=== PATIENT | male | born 1965 | race African-American/Black ===

== ENCOUNTER 2016-10-11 19:11 | Emergency (ER) | payer MEDICAID, OTHER ==
[~2016-10-11] VITALS: Ht 188 cm; Wt 111.0 kg
[~2016-10-11 19:11] MED LIST: AMLO10 PO; ASPI81CH25 CHEW; CHLOR50 PO; CIAL5TAB PO; HYDR25TA35 PO; LEVO.125 PO; LIPI40TA PO; LITH300C2 PO; METO50TA PO; ONETAB4 PO
[2016-10-11 19:12] VITALS: BP 194/99; PULSE 96; RESP 18; TEMP 98; O2SAT 96
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
[2016-10-11] MEDS ORDERED: HYDR-3533 PO (20:50)
[2016-10-11] MEDS ORDERED: DEXAMETHASONE SOD PHOS 20 MG/5 ML VIAL IM ONE (21:00)
[2016-10-11] MEDS ORDERED: ACETAMINOPHEN/HYDROcodone 325 MG/5 MG TAB PO ONE (21:00)
--- NOTE | 2016-10-11 21:29 | RADRPT ---
EXAM DATE/TIME: 10/11/2016 20:38 [facility] COMPARISON: No previous studies available for comparison. INDICATIONS : Left foot pain, denies injury MEDICAL HISTORY : None. SURGICAL HISTORY : None. ENCOUNTER: Initial ACUITY: 1 day PAIN SCORE: 8/10 LOCATION: Left Foot FINDINGS: Three view examination of the left foot demonstrates no soft tissue swelling, dislocation, or fractur e. The tarsal bones appear intact. The interphalangeal and metatarsophalangeal joints are intact. The calcaneus is intact. Bony mineralization is normal. CONCLUSION: The osseous structures of the foot are grossly intact. Reji Mclaughlin MD on October 11, 2016 at 21:27 Board Certified Radiologist. This report was verified electronically.
[2016-10-26] MEDS ORDERED: LEVO150T7 PO (11:56)
[2016-10-26] MEDS ORDERED: IBUP800T23 PO (12:17)
[2016-10-26] MEDS ORDERED: LEVO200T4 PO (14:53)
[2016-11-16] MEDS ORDERED: MILL5PAK (08:33)
[2016-11-16] MEDS ORDERED: OXYC1TAB36 PO (08:33)
[2016-11-16] MEDS ORDERED: ROBA500T PO (08:33)
[2016-11-16] MEDS ORDERED: RISP0.5T2 PO (08:33)
[2016-11-16] MEDS ORDERED: GABA300C5 PO (09:00)
[2016-11-16] MEDS ORDERED: PRED5PAK PO (09:07)
[2016-11-30] MEDS ORDERED: TURM500C3 PO (09:46)
[2016-11-30] MEDS ORDERED: METH125I2 IM (10:04)
[2016-11-30] MEDS ORDERED: KETO60IN6 IM (10:04)
[2016-11-30] MEDS ORDERED: GABA600T PO (10:08)
[2016-11-30] MEDS ORDERED: ALBUAER3 INH (10:17)
[2016-12-01] MEDS ORDERED: LEVO200T4 PO (09:22)
[2016-12-09] MEDS ORDERED: KETO60IN6 IM (09:45)
[2016-12-09] MEDS ORDERED: METH125I2 IM (09:45)
[2016-12-15] MEDS ORDERED: METO50TA PO (12:35)
[2016-12-21] MEDS ORDERED: GABA600T PO (11:02)
[2016-12-21] MEDS ORDERED: PRED10PA PO (11:02)
[2016-12-21] MEDS ORDERED: CYCL1TAB29 PO (11:02)
[2016-12-21] MEDS ORDERED: METH125I2 IM (11:04)
[2016-12-21] MEDS ORDERED: KETO60IN6 IM (11:04)
[2017-01-26] MEDS ORDERED: MELO-1 (10:14)
[2017-01-27] MEDS ORDERED: HYDR2TAB PO (10:34)
[2017-01-27] MEDS ORDERED: HYDR-3583 PO (12:58)
[2017-02-19] MEDS ORDERED: HYDR-3583 PO (12:35)
== END 2016-10-11 21:17 | disposition home or self-care (01) ==
LOC: NEPB 19:11
DX: S93.602A Unspecified sprain of left foot, initial encounter (principal); M79.672 Pain in left foot; I10 Essential (primary) hypertension; E07.9 Disorder of thyroid, unspecified; Z72.0 Tobacco use; Z86.73 Personal history of transient ischemic attack (TIA), and cerebral infarction without residual deficits; Z87.39 Personal history of other diseases of the musculoskeletal system and connective tissue; X50.1XXA Overexertion from prolonged static or awkward postures, initial encounter
CPT/HCPCS: 73630; 96372; 99283; E0113; J1100

== ENCOUNTER 2016-10-14 17:03 | Emergency (ER) | payer MEDICAID, OTHER ==
[~2016-10-14] VITALS: Ht 188 cm; Wt 111.4 kg
[~2016-10-14 17:03] MED LIST changes: +HYDR-3533 PO
[2016-10-14 17:05] VITALS: BP 187/100; PULSE 66; RESP 15; TEMP 97.8; O2SAT 96
[2016-10-14] MEDS ORDERED: TRAM50TA PO (17:55)
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
[2016-10-14] MEDS ORDERED: KETOROLAC TROMETHAMINE 60 MG/2 ML (IM) VIAL IM ONE (18:00)
[2016-10-26] MEDS ORDERED: LEVO150T7 PO (11:56)
[2016-10-26] MEDS ORDERED: IBUP800T23 PO (12:17)
[2016-10-26] MEDS ORDERED: LEVO200T4 PO (14:53)
[2016-11-16] MEDS ORDERED: OXYC1TAB36 PO (08:33)
[2016-11-16] MEDS ORDERED: ROBA500T PO (08:33)
[2016-11-16] MEDS ORDERED: RISP0.5T2 PO (08:33)
[2016-11-16] MEDS ORDERED: MILL5PAK (08:33)
[2016-11-16] MEDS ORDERED: GABA300C5 PO (09:00)
[2016-11-16] MEDS ORDERED: PRED5PAK PO (09:07)
[2016-11-30] MEDS ORDERED: TURM500C3 PO (09:46)
[2016-11-30] MEDS ORDERED: METH125I2 IM (10:04)
[2016-11-30] MEDS ORDERED: KETO60IN6 IM (10:04)
[2016-11-30] MEDS ORDERED: GABA600T PO (10:08)
[2016-11-30] MEDS ORDERED: ALBUAER3 INH (10:17)
[2016-12-01] MEDS ORDERED: LEVO200T4 PO (09:22)
[2016-12-09] MEDS ORDERED: KETO60IN6 IM (09:45)
[2016-12-09] MEDS ORDERED: METH125I2 IM (09:45)
[2016-12-15] MEDS ORDERED: METO50TA PO (12:35)
[2016-12-21] MEDS ORDERED: PRED10PA PO (11:02)
[2016-12-21] MEDS ORDERED: CYCL1TAB29 PO (11:02)
[2016-12-21] MEDS ORDERED: GABA600T PO (11:02)
[2016-12-21] MEDS ORDERED: KETO60IN6 IM (11:04)
[2016-12-21] MEDS ORDERED: METH125I2 IM (11:04)
[2017-01-26] MEDS ORDERED: MELO-1 (10:14)
[2017-01-27] MEDS ORDERED: HYDR2TAB PO (10:34)
[2017-01-27] MEDS ORDERED: HYDR-3583 PO (12:58)
[2017-02-19] MEDS ORDERED: HYDR-3583 PO (12:35)
== END 2016-10-14 18:10 | disposition home or self-care (01) ==
LOC: NEPB 17:03
DX: M79.672 Pain in left foot (principal); I10 Essential (primary) hypertension; E07.9 Disorder of thyroid, unspecified; Z72.0 Tobacco use; Z86.79 Personal history of other diseases of the circulatory system; Z86.73 Personal history of transient ischemic attack (TIA), and cerebral infarction without residual deficits; Z87.39 Personal history of other diseases of the musculoskeletal system and connective tissue; Z86.59 Personal history of other mental and behavioral disorders
CPT/HCPCS: 96372; 99283; J1885

== ENCOUNTER 2016-10-22 10:22 | Emergency (ER) | payer MEDICAID, OTHER ==
[~2016-10-22] VITALS: Ht 188 cm; Wt 110.0 kg
[~2016-10-22 10:22] MED LIST changes: +TRAM50TA PO
[2016-10-22 10:23] VITALS: BP 150/87; PULSE 58; RESP 12; TEMP 97.9; O2SAT 98
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
[2016-10-26] MEDS ORDERED: LEVO150T7 PO (11:56)
[2016-10-26] MEDS ORDERED: IBUP800T23 PO (12:17)
[2016-10-26] MEDS ORDERED: LEVO200T4 PO (14:53)
[2016-11-16] MEDS ORDERED: RISP0.5T2 PO (08:33)
[2016-11-16] MEDS ORDERED: OXYC1TAB36 PO (08:33)
[2016-11-16] MEDS ORDERED: MILL5PAK (08:33)
[2016-11-16] MEDS ORDERED: ROBA500T PO (08:33)
[2016-11-16] MEDS ORDERED: GABA300C5 PO (09:00)
[2016-11-16] MEDS ORDERED: PRED5PAK PO (09:07)
[2016-11-30] MEDS ORDERED: TURM500C3 PO (09:46)
[2016-11-30] MEDS ORDERED: METH125I2 IM (10:04)
[2016-11-30] MEDS ORDERED: KETO60IN6 IM (10:04)
[2016-11-30] MEDS ORDERED: GABA600T PO (10:08)
[2016-11-30] MEDS ORDERED: ALBUAER3 INH (10:17)
[2016-12-01] MEDS ORDERED: LEVO200T4 PO (09:22)
[2016-12-09] MEDS ORDERED: KETO60IN6 IM (09:45)
[2016-12-09] MEDS ORDERED: METH125I2 IM (09:45)
[2016-12-15] MEDS ORDERED: METO50TA PO (12:35)
[2016-12-21] MEDS ORDERED: GABA600T PO (11:02)
[2016-12-21] MEDS ORDERED: CYCL1TAB29 PO (11:02)
[2016-12-21] MEDS ORDERED: PRED10PA PO (11:02)
[2016-12-21] MEDS ORDERED: METH125I2 IM (11:04)
[2016-12-21] MEDS ORDERED: KETO60IN6 IM (11:04)
[2017-01-26] MEDS ORDERED: MELO-1 (10:14)
[2017-01-27] MEDS ORDERED: HYDR2TAB PO (10:34)
[2017-01-27] MEDS ORDERED: HYDR-3583 PO (12:58)
[2017-02-19] MEDS ORDERED: HYDR-3583 PO (12:35)
== END 2016-10-22 11:20 | disposition left against medical advice (07) ==
LOC: NEPB 10:22
DX: M79.672 Pain in left foot (principal); I10 Essential (primary) hypertension; E05.90 Thyrotoxicosis, unspecified without thyrotoxic crisis or storm
CPT/HCPCS: 99281

== ENCOUNTER → 2016-10-26 | Outpatient (CLI) | payer MEDICAID, OTHER ==
[~2016-10-26] MED LIST changes: +ALBUAER3 INH; +CYCL1TAB29 PO; +GABA300C5 PO; +GABA600T PO; +HYDR-3583 PO; +HYDR2TAB PO; +IBUP800T23 PO; +KETO60IN6 IM; +LEVO150T7 PO; +LEVO200T4 PO; +MELO-1; +METH125I2 IM; +MILL5PAK; +OXYC1TAB36 PO; +PRED10PA PO; +PRED5PAK PO; +RISP0.5T2 PO; +ROBA500T PO; +TURM500C3 PO
== END ==
LOC: CLAB 12:37
PROVIDERS: ATTEND Family Medicine
DX: E03.9 Hypothyroidism, unspecified (principal)
CPT/HCPCS: 36415; 84443

== ENCOUNTER → 2016-11-30 | Outpatient (CLI) | payer MEDICAID, OTHER ==
[~2016-11-30] MED LIST changes: -CHLOR50 PO; -CIAL5TAB PO; -HYDR-3533 PO; -IBUP800T23 PO; -LEVO.125 PO; -LEVO150T7 PO; -LITH300C2 PO; -TRAM50TA PO
== END ==
LOC: CLAB 10:50
PROVIDERS: ATTEND Family Medicine
DX: E03.9 Hypothyroidism, unspecified (principal)
CPT/HCPCS: 36415; 84443

== ENCOUNTER 2016-12-19 10:02 | Emergency (ER) | payer MEDICAID, OTHER ==
[~2016-12-19] VITALS: Ht 190.5 cm; Wt 113.5 kg
[~2016-12-19 10:02] MED LIST changes: -CYCL1TAB29 PO; -GABA300C5 PO; -HYDR-3583 PO; -HYDR2TAB PO; -KETO60IN6 IM; -MELO-1; -METH125I2 IM; -MILL5PAK; -OXYC1TAB36 PO; -PRED10PA PO; -PRED5PAK PO; -ROBA500T PO
[2016-12-19 10:04] VITALS: BP 118/100; PULSE 100; RESP 24; TEMP 97.9; O2SAT 99
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
[2016-12-19] MEDS ORDERED: KETOROLAC TROMETHAMINE 60 MG/2 ML (IM) VIAL IM ONE (11:00)
[2016-12-19] MEDS ORDERED: MORPHINE SULFATE 8 MG/ML INJ IM ONE (11:00)
[2016-12-19] MEDS ORDERED: ORPHENADRINE INJ 60 MG/2 ML AMP IM ONE (11:00)
[2016-12-19 12:44] VITALS: BP 162/97; PULSE 82; RESP 16; O2SAT 95
[2016-12-21] MEDS ORDERED: PRED10PA PO (11:02)
[2016-12-21] MEDS ORDERED: CYCL1TAB29 PO (11:02)
[2016-12-21] MEDS ORDERED: GABA600T PO (11:02)
[2016-12-21] MEDS ORDERED: KETO60IN6 IM (11:04)
[2016-12-21] MEDS ORDERED: METH125I2 IM (11:04)
[2017-01-26] MEDS ORDERED: MELO-1 (10:14)
[2017-01-27] MEDS ORDERED: HYDR2TAB PO (10:34)
[2017-01-27] MEDS ORDERED: HYDR-3583 PO (12:58)
[2017-02-19] MEDS ORDERED: HYDR-3583 PO (12:35)
== END 2016-12-19 12:48 | disposition home or self-care (01) ==
LOC: NEPE 10:02
DX: M54.12 Radiculopathy, cervical region (principal); I10 Essential (primary) hypertension; F17.210 Nicotine dependence, cigarettes, uncomplicated; Z86.73 Personal history of transient ischemic attack (TIA), and cerebral infarction without residual deficits
CPT/HCPCS: 96372; 99283; J1885; J2270; J2360

== ENCOUNTER 2017-01-18 06:25 | Observation (INO) | payer OTHER ==
[~2017-01-18] VITALS: Ht 189.2 cm; Wt 114.7 kg
[~2017-01-18 06:25] MED LIST changes: +CYCL1TAB29 PO
[2017-01-18] MEDS ORDERED: ceFAZolin 2 GM PREMIX 50 ML IV SCH (07:15)
[2017-01-18] MEDS ORDERED: CHLORHEXIDINE GLUCONATE 2 % 1 PACK (2 CLOTHS) TOPICAL PRN (07:15)
[2017-01-18] MEDS ORDERED: LACTATED RINGER'S 1000 ML IV PRN (07:15)
[2017-01-18] MEDS ORDERED: INSULIN HUMAN REGULAR 1,000 UNITS/10 ML VIAL SQ PRN (07:15)
[2017-01-18] MEDS ORDERED: LACTATED RINGER'S 1000 ML INJ 1,000 ML IV SCH (07:15)
[2017-01-18] MEDS ORDERED: POVIDONE IODINE 5% (ANTISEPSIS KIT) 4 APPLICATIONS EACH NARE PRN (07:15)
[2017-01-18] MEDS ORDERED: SODIUM CHLORID 0.9% 500 ML IV PRN (07:15)
[2017-01-18] MEDS ORDERED: METOPROLOL TARTRATE 25 MG TAB PO PRN (07:15)
[2017-01-18 07:22] VITALS: BP 143/90; PULSE 74; RESP 16; TEMP 98.2; O2SAT 97
[2017-01-18] MEDS ORDERED: THROMBIN (TOPICAL) 5,000 UNIT VIAL ONE (07:28)
[2017-01-18] MEDS ORDERED: GENTAMICIN SULFATE 80 MG/2 ML VIAL ONE (07:29)
[2017-01-18] MEDS ORDERED: GELFOAM SIZE 100 ONE (07:29)
[2017-01-18] MEDS ORDERED: LIDOCAINE 1%/EPINEPHrine 1:100,000 SOLN 20 ML VIAL ONE (07:29)
[2017-01-18 07:46] LABS: AUTOMATED NEUTROPHIL # 4.1 TH/MM3 (1.8-7.7); BASOPHIL # 0.1 TH/MM3 (0-0.2); BASOPHIL % 1.1 % (0.0-2.0); EOSINOPHIL # 0.2 TH/MM3 (0-0.4); EOSINOPHIL % 2.5 % (0.0-4.0); HEMATOCRIT 41.5 % (39.0-51.0); HEMO FLAGS DIFF FINAL; LYMPH % 26.2 % (9.0-44.0); LYMPHOCYTE # 1.8 TH/MM3 (1.0-4.8); MEAN CELL VOLUME 78.9 FL (80.0-100.0); MONO % 12.5 % (0.0-8.0); NEUT % 57.7 % (16.0-70.0); PLATELET COUNT 305 TH/MM3 (150-450); RED BLOOD COUNT 5.27 MIL/MM3 (4.50-5.90); RED CELL DISTRIBUTION WIDTH 16.3 % (11.6-17.2); WHITE BLOOD COUNT 7.1 TH/MM3 (4.0-11.0)
[2017-01-18] MEDS ORDERED: ARTIFICIAL TEARS OPTH OINT 3.5 APPLIC/3.5 GM TUBO ONE (08:09)
[2017-01-18] MEDS ORDERED: FAMOTIDINE 20 MG/2 ML VIAL ONE (08:09)
[2017-01-18] MEDS ORDERED: ACETAMINOPHEN 1000 MG/100 ML VIAL IV ONE (08:09)
[2017-01-18] MEDS ORDERED: MIDAZOLAM HCL 2 MG/2 ML VIAL ONE ×2 (08:09→08:27)
[2017-01-18] MEDS ORDERED: fentaNYL CITRATE 250 MCG/5 ML AMP ONE ×2 (08:09→08:27)
[2017-01-18] MEDS ORDERED: KETAMINE HCL 500 MG/5 ML VIAL ONE (08:27)
--- NOTE | 2017-01-18 11:12 | EKG ---
Date Performed: 01/18/2017 Time Performed: 07:21:37 PTAGE: 51 years EKG: Sinus rhythm NONSPECIFIC ST ELEVATION BORDERLINE ECG PREVIOUS TRACING : 07/09/2016 02.44 DOCTOR: Ancelmo Martinez Interpretating Date/Time 01/18/2017 11:11:32
[2017-01-18] MEDS ORDERED: ceFAZolin INJ 1,000 MG VIAL IV ONE ×2 (11:59→12:00)
[2017-01-18] MEDS ORDERED: PHENYLEPHRINE HCL 10 MG/ML VIAL IV ONE (12:00)
[2017-01-18] MEDS ORDERED: ONDANSETRON HCL 4 MG/2 ML VIAL IV PUSH ONE (12:00)
[2017-01-18] MEDS ORDERED: SODIUM CHLOR 0.9% 250 ML INJ 250 ML IV ONE (12:00)
[2017-01-18] MEDS ORDERED: PROPOFOL 200 MG/20 ML AMP IV ONE (12:00)
[2017-01-18] MEDS ORDERED: LACTATED RINGER'S 1000 ML INJ 2,000 ML IV ONE (12:00)
[2017-01-18] MEDS ORDERED: NEOSTIGMINE 3 MG/3 ML SYR IV ONE (12:00)
[2017-01-18] MEDS ORDERED: NALOXONE HCL 0.4 MG/ML AMP IV PRN (13:30)
[2017-01-18] MEDS ORDERED: oxyCODONE/ACETAMINOPHEN 10 MG/325 MG TAB PO PRN (13:30)
[2017-01-18] MEDS ORDERED: MORPHINE SULFATE 4 MG/ML INJ IV PRN (13:30)
[2017-01-18] MEDS ORDERED: HYDROmorphone HCL PF 1 MG/ML VIAL IV PRN (13:30)
[2017-01-18] MEDS ORDERED: ONDANSETRON HCL 4 MG/2 ML VIAL IV PRN (13:30)
[2017-01-18] MEDS ORDERED: DO NOT ADM ANY ANTICOAGULANT DRUGS PRN (13:35)
--- NOTE | 2017-01-18 13:36 | RADRPT ---
EXAM DATE/TIME: 01/18/2017 09:19 [facility] COMPARISON: No previous studies available for comparison. INDICATIONS : C6-7 Artifical disc placement. MEDICAL HISTORY : Hypertension. Chronic obstructive pulmonary disease. Stroke. Smoker. SURGICAL HISTORY : None. ENCOUNTER: Initial ACUITY: 1 day PAIN SCORE: Non-responsive. LOCATION: Cervical spine. FINDINGS: AP and lateral views of the cervical spine demonstrates interval placement of a prosthetic disc in th e C6-7 disc space. The prosthesis appears be well-positioned. Alignment is well maintained. Surgical drain is identified in the left paraspinal region. CONCLUSION: Satisfactory appearance of the cervical spine following placement of an intervertebral prosthetic dis c at C6-7. Juarez Parham MD on January 18, 2017 at 13:31 Board Certified Radiologist. This report was verified electronically.
--- NOTE | 2017-01-18 13:41 | PD.OP ---
Operative Report Date of Surgery: January 18, 2017 Preoperative Diagnosis: (1) Cervical radiculopathy (2) HNP (herniated nucleus pulposus), cervical 1. C6 7 herniated nucleus pulposus 2. Left and possible right C7 radiculopathy Postoperative Diagnosis: (1) Cervical radiculopathy (2) HNP (herniated nucleus pulposus), cervical 1. C6 7 herniated nucleus pulposus 2. Left and possible right C7 radiculopathy Procedure: 1. C6 7 anterior cervical discectomy, resection herniated nucleus pulposus 2. C6 7 anterior cervical artificial disc placement (Mobi-C) Anesthesia: Gen. Surgeon: Christian Norman [employer] Machine Operator(s): Richmond Kapadia Operation and Findings: Procedure in detail: The patient was brought into the operating room and positioned in supine position on the 3080 table with the head and neck in neutral position. Wong catheter was placed. Lines were established by Anesthesia. Gen. endotracheal anesthesia was induced without difficulty, taking care not to significantly flex or extend the patient's neck during intubation and positioning. All extremities were appropriately padded. The neck and upper chest were shaved with clippers and sterilely prepped and draped. Appropriate timeout procedure was performed with all personnel present and in agreement 1% Xylocaine with epinephrine was used for local infiltration over the incision site which was made transversely at the left C6-7 level and carried sharply down through the platysma muscle. The exposure was continued medial to the sternocleidomastoid muscle and carotid artery, and lateral to the trachea and esophagus. The prevertebral fascia was elevated away from the anterior longitudinal ligament with a Kitner sponge. The longus coli muscle on each side was elevated with the Maloney elevator. The self-retaining retractor was placed with the blades beneath the longus coli muscle on each side. The appropriate levels were confirmed with intraoperative C-arm and preoperative imaging studies. The microscope was brought into place and used for the remainder of the procedure including the closure. The 14 mm distraction pins were used as needed for gentle distraction during the procedure. The procedure was performed at the C6-7 level The anterior osteophyte was resected with the Leksell rongeur. The disc and annulus was incised with a 15 blade knife and discectomy performed with pituitary biopsy forceps and straight and angled curettes. The endplates were thoroughly cleaned with a curette. The TPS drill with the 4 mm barrel bur was used to remove the posterior margin of the vertebral body to remove any osteophytes and allow adequate access to the anterior spinal canal. The thin ligament dissector was used to free up the posterior annulus and ligament from the vertebral body margin. The remainder of the resection of the posterior annulus and ligament as well as the posterior osteophyte and bilateral uncovertebral joint as needed was performed with the 2 and 3 mm thin footplate Kerrison rongeurs. A component of herniated nucleus pulposus was encountered posterior to the annulus on the left side and was lifted away from the thecal sac with the thin ligament dissector and removed. On the right side, there was a small fracture or focal osteophyte at the dorsal aspect of the uncovertebral joint adjacent to the foramen which appeared to impinge the exiting right C7 nerve root. This was lifted away from the foramen with the thin ligament dissector and removed with the 2 mm thin footplate Kerrison rongeur. The appropriate size Mobi- C implant was then chosen using the trial. The 15 x 15 x 6 mm implant was utilized. Using anatomic landmarks, and AP and lateral C- arm imaging, the appropriate size Mobi- C then placed with a good fit of the implant. The blunt nerve hook was used to probe beneath the implant to ensure that there was no impingement on the thecal sac or exiting nerve roots. The implant device was removed. The entire construct was checked with intraoperative C-arm and felt to be satisfactory. The 10 Tanz[place] drain was brought out through a small incision in the left lower neck and secured to the skin with nylon suture and attached to sterile suction. The closure was performed with 3-0 Vicryl running for the platysma and interrupted for the subcutaneous closure, with 4-0 Vicryl running for the subcuticular closure. A dressing of sterile Mastisol, Steri-Strips, and Primapore dressing was placed. The patient was taken to recovery room in stable condition. All counts were correct at the end of the case. Estimated blood loss was 100 cc No specimen was sent to pathology. Intraoperative neuro monitoring remained stable during the procedure. Christian Norman MD January 18, 2017 13:40
[2017-01-18] MEDS ORDERED: SODIUM CHLORIDE 0.9% FLUSH 10 ML FLUSH IV FLUSH PRN (14:00)
[2017-01-18] MEDS ORDERED: ALBUTEROL SULFATE 90 MCG/ACT HFA 18 GM INHALER INH PRN (14:00)
[2017-01-18] MEDS: D5-1/2 NS + KCL 20 MEQ INJ 1,000 ML IV SCH ×2 (14:00→22:41)
[2017-01-18 15:36] VITALS: BP 134/82; PULSE 90; RESP 16; TEMP 98.2; O2SAT 94
[2017-01-18] MEDS: ACETAMINOPHEN/HYDROcodone 325 MG/5 MG TAB PO PRN ×2 (16:40→23:27)
[2017-01-18] MEDS: hydrALAZINE HCL 25 MG TAB PO SCH (17:38)
[2017-01-18] MEDS: GABAPENTIN 300 MG CAP PO SCH (17:38)
[2017-01-18] MEDS: CYCLOBENZAPRINE HCL 10 MG TAB PO SCH (17:38)
[2017-01-18 19:00] VITALS: BP 170/106; PULSE 89; RESP 18; TEMP 97.5; O2SAT 92
[2017-01-18] MEDS: METOPROLOL TARTRATE 50 MG TAB PO SCH (20:18)
[2017-01-18] MEDS: risperiDONE 0.5 MG TAB PO SCH (20:18)
[2017-01-18] MEDS: DOCUSATE SODIUM 100 MG CAP PO SCH (20:18)
[2017-01-18] MEDS: SODIUM CHLORIDE 0.9% FLUSH 10 ML FLUSH IV FLUSH SCH (20:20)
[2017-01-18 21:20] VITALS: BP 162/85
[2017-01-19] VITALS: BP 159/96; PULSE 74; RESP 17; TEMP 97.5; O2SAT 92
[2017-01-19 04:00] VITALS: BP 165/103; PULSE 94; RESP 16; TEMP 97.1; O2SAT 99
[2017-01-19] MEDS: ACETAMINOPHEN/HYDROcodone 325 MG/5 MG TAB PO PRN ×3 (04:20→12:27)
[2017-01-19 05:15] VITALS: BP 159/92
[2017-01-19] MEDS ORDERED: LEVOTHYROXINE SODIUM 125 MCG TAB PO SCH (06:00)
[2017-01-19] MEDS: risperiDONE 0.5 MG TAB PO SCH (08:22)
[2017-01-19] MEDS: DOCUSATE SODIUM 100 MG CAP PO SCH (08:22)
[2017-01-19] MEDS: GABAPENTIN 300 MG CAP PO SCH ×2 (08:22→12:27)
[2017-01-19] MEDS: METOPROLOL TARTRATE 50 MG TAB PO SCH (08:23)
[2017-01-19] MEDS: CYCLOBENZAPRINE HCL 10 MG TAB PO SCH ×2 (08:23→12:27)
[2017-01-19] MEDS: hydrALAZINE HCL 25 MG TAB PO SCH ×2 (08:24→12:27)
[2017-01-19] MEDS: D5-1/2 NS + KCL 20 MEQ INJ 1,000 ML IV SCH (08:29)
[2017-01-19] MEDS: SODIUM CHLORIDE 0.9% FLUSH 10 ML FLUSH IV FLUSH SCH (08:33)
[2017-01-19 08:42] VITALS: BP 155/97; PULSE 73; RESP 18; TEMP 97.4; O2SAT 92
[2017-01-19] MEDS ORDERED: TURMERIC PO SCH (09:00)
[2017-01-19] MEDS ORDERED: ATORVASTATIN 40 MG TAB PO SCH (09:00)
[2017-01-19] MEDS ORDERED: PANTOPRAZOLE SOD 40 MG DELAYED RELEASE TAB PO SCH (09:00)
[2017-01-19] MEDS ORDERED: MULTIVITAMINS/MINERALS THERAPEUTIC TAB PO SCH (09:00)
[2017-01-19] MEDS ORDERED: HYDR-3583 PO (09:53)
--- NOTE | 2017-01-19 09:53 | HHI.DCPOC ---
Discharge Care Plan Diagnosis: (1) Cervical radiculopathy (2) HNP (herniated nucleus pulposus), cervical Your Health Problems Are: Incision/Drains Loss of Movements Chronic Pain Goals to Promote Your Health * To prevent worsening of your condition and complications * To maintain your health at the optimal level Directions to Meet Your Goals Take your medications as prescribed Follow your dietary instruction Follow activity as directed Keep your appointments as scheduled Take your immunizations and boosters as scheduled If your symptoms worsen call your PCP, if no PCP go to Urgent Care Center or Emergency Room Smoking is Dangerous to Your Health. Avoid second hand smoke Call the 24-hour hour crisis hotline for domestic abuse at Christian Norman MD January 19, 2017 09:53
--- NOTE | 2017-01-19 09:58 | HHI.DS ---
Discharge Summary Admission Date January 18, 2017 at 13:28 Discharge Date: January 19, 2017 Admitting Diagnosis C6 7 herniated nucleus pulposus Left C7 radiculopathy with sensory motor deficit Hypertension (1) Cervical radiculopathy ICD Code: M54.12 (2) HNP (herniated nucleus pulposus), cervical ICD Code: M50.20 Procedures 01/18/17: C6 7 anterior discectomy, placement of artificial disc CBC/BMP: 01/18/17 0720 Significant Findings Laboratory Tests Test 01/18/17 07:20 Mean Corpuscular Volume 78.9 FL (80.0-100.0) Mean Corpuscular Hemoglobin 26.0 PG (27.0-34.0) Monocytes (%) (Auto) 12.5 % (0.0-8.0) PE at Discharge Respirations clear Pulse regular Incision dry and intact Mild drain output No neck edema No hoarseness of voice Sensation moderately diminished light touch C7 distribution left upper extremity unchanged compared to preoperative Left triceps 4/5, appears improved compared to preoperative Right triceps 5/5 Hospital Course Patient admitted for the above noted procedure performed without complication. Postop day #1 afebrile, mild drain output, no hoarseness of voice, tolerating diet. Incision dry and intact Left C7 sensory deficit unchanged compared to preoperative but appears to have some increased left triceps motor function Stable for discharge 01/29/17. Use of the brace, activity precautions, signs and symptoms to watch for, diet, exercises all fully discussed. All questions answered Pt Condition on Discharge: Good Discharge Disposition: Discharge Home Discharge Instructions DIET: Follow Instructions for: As Tolerated, No Restrictions ACTIVITIES You can perform: Weight Bearing As Ryne Activities to Avoid: Lifting/Bending, Strenuous Activity New Medications: Hydrocodone-Acetaminophen (Hydrocodone-Acetaminophen) 10-325 mg Tab 1 TAB PO Q6H PRN PAIN #60 Ref 0 TAB Continued Medications: Albuterol 8.5 GM Inh (Proair Hfa 8.5 GM Inh) 90 Mcg/Act Aer 1 PUFF INH Q4H 108 mcg/actuation PRN SHORTNESS OF BREATH #1 Ref 3 INHALER Amlodipine (Norvasc) 10 Mg Tab 10 MG PO DAILY #60 Ref 3 TAB Atorvastatin (Lipitor) 40 Mg Tab 40 MG PO DAILY #60 Ref 3 TAB Cyclobenzaprine (Flexeril) 10 Mg Tab 10 MG PO TID Muscle Spasm #90 Ref 3 TAB Gabapentin (Gabapentin) 600 Mg Tab 2 TAB PO TID #180 Ref 2 TAB Hydralazine (Hydralazine) 25 Mg Tab 25 MG PO TID Take with a meal Blood Pressure Management #90 Ref 0 TAB Levothyroxine (Levothyroxine) 200 Mcg Tab 250 MCG PO DAILY Thyroid Days 30 Ref 1 TAB Metoprolol Tartrate (Metoprolol Tartrate) 50 Mg Tab 50 MG PO BID #60 Ref 2 TAB Multiple Vitamins W/ Minerals (One Daily Mens) 1 Tab Tab 1 TAB PO DAILY Risperidone (Risperidone) 0.5 Mg Tab 0.5 MG PO Q12HR #60 Ref 0 TAB Turmeric (Curcuma Longa) (Turmeric) 500 Mg Cap 1 TAB PO DAILY Nutritional Supplement Discontinued Medications: Aspirin (Aspirin Low Strength) 81 Mg Chew 81 MG CHEW DAILY #60 Ref 3 Christian Callahan MD January 19, 2017 09:58
--- NOTE | 2017-01-19 10:00 | HHI.NSPN ---
History Chief Complaint: no complaints Interval History Patient status post C6 7 discectomy artificial disc placement 01/19/17 for treatment of herniated nucleus pulposis with left C7 radiculopathy with sensory motor deficit Exam Results Vital Signs Date Time Temp Pulse Resp B/P Pulse Ox O2 Delivery O2 Flow Rate FiO2 01/19/17 08:42 97.4 73 18 155/97 92 01/18/17 14:30 Nasal Cannula 2 Intake and Output 01/18/17 01/18/17 01/19/17 08:00 16:00 00:00 Intake Total 2200 ml 1360 ml Output Total 450 ml 20 ml Balance 1750 ml 1340 ml Physical Examination Respirations clear Pulse regular Incision dry and intact Mild drain output No neck edema No hoarseness of voice Sensation moderately diminished light touch C7 distribution left upper extremity unchanged compared to preoperative Left triceps 4/5, appears improved compared to preoperative Right triceps 5/5 Medical Decision Making Impression and Plan Impression: 1. Doing well postoperative. May have a little improvement in left triceps strength postoperative. No right upper extremity motor deficit Plan: Findings discussed with patient Signs and symptoms to watch for, wound care, use of brace, activity precautions all fully discussed. Stable for discharge today Christian Norman MD January 19, 2017 10:00
[2017-01-26] MEDS ORDERED: MELO-1 (10:14)
[2017-01-27] MEDS ORDERED: HYDR2TAB PO (10:34)
[2017-01-27] MEDS ORDERED: HYDR-3583 PO (12:58)
[2017-02-19] MEDS ORDERED: HYDR-3583 PO (12:35)
== END 2017-01-19 12:49 | disposition home or self-care (01) ==
LOC: HSDC 06:25 → EDSTATUS 08:30 → HSDI 13:28 → N06B 14:46
PROVIDERS: ADMIT Neurological Surgery; ATTEND Neurological Surgery
DX: M50.123 Cervical disc disorder at C6-C7 level with radiculopathy (principal); J44.9 Chronic obstructive pulmonary disease, unspecified; I10 Essential (primary) hypertension; F17.200 Nicotine dependence, unspecified, uncomplicated; E78.5 Hyperlipidemia, unspecified; E66.9 Obesity, unspecified; Z68.32 Body mass index [BMI] 32.0-32.9, adult; Z88.6 Allergy status to analgesic agent; Z86.73 Personal history of transient ischemic attack (TIA), and cerebral infarction without residual deficits
CPT/HCPCS: 22856; 72040; 76000; 85025; 93005; 97161; C1713; G0378; G8987; G8988; J0131; J0690; J1580; J2250; J2270; J2370; J2405; J2710; J3010; J3480; J7050; J7120; L0150; L0172

== ENCOUNTER 2017-06-21 11:42 | Emergency (ER) | payer OTHER ==
[~2017-06-21] VITALS: Ht 190.5 cm; Wt 120.0 kg
[~2017-06-21 11:42] MED LIST changes: -ASPI81CH25 CHEW; -CYCL1TAB29 PO; +HYDR-3583 PO; +HYDR-3801 PO; -HYDR25TA35 PO; +MELO-1; +MULT-65 PO; -ONETAB4 PO
[2017-06-21 11:43] VITALS: BP 161/93; PULSE 89; RESP 15; TEMP 98.4; O2SAT 96
[2017-07-01] MEDS ORDERED: HYDR-3583 PO (13:20)
== END 2017-06-21 13:45 | disposition left against medical advice (07) ==
LOC: NED 11:42
DX: M25.561 Pain in right knee (principal)
CPT/HCPCS: 99281

== ENCOUNTER 2017-08-22 13:53 | Emergency (ER) | payer OTHER ==
[~2017-08-22] VITALS: Ht 188 cm; Wt 112.0 kg
[~2017-08-22 13:53] MED LIST changes: -MELO-1; +MELO15TA20
[2017-08-22 13:55] VITALS: BP 177/96; PULSE 76; RESP 18; TEMP 97.5; O2SAT 99
[2017-08-22] MEDS ORDERED: SODIUM CHLOR 0.9% 1000 ML INJ 1,000 ML IV SCH (14:09)
[2017-08-22] MEDS ORDERED: KETOROLAC TROMETHAMINE 30 MG/ML (IVP) VIAL IVP ONE (14:15)
[2017-08-22] MEDS ORDERED: CIPROFLOXACIN 750 MG TAB PO ONE (14:15)
[2017-08-22] MEDS ORDERED: ONDANSETRON HCL 4 MG/2 ML VIAL IVP ONE (14:15)
[2017-08-22] MEDS ORDERED: CLINDAMYCIN 900 MG/NS PREMIX 50 ML IV ONE (14:15)
[2017-08-22] MEDS ORDERED: MORPHINE SULFATE 4 MG/ML INJ IV PUSH ONE (14:15)
[2017-08-22] MEDS ORDERED: SODIUM CHLORIDE 0.9% FLUSH 10 ML FLUSH IV FLUSH PRN (14:15)
[2017-08-22] MEDS ORDERED: LEVO200T4 PO (14:52)
[2017-08-22] MEDS ORDERED: MONT10TA2 PO (14:52)
[2017-08-22] MEDS ORDERED: HYDR-3799 PO (14:52)
[2017-08-22] MEDS ORDERED: ASPI81TA16 PO (14:52)
[2017-08-22 14:57] LABS: AUTOMATED NEUTROPHIL # 4.7 TH/MM3 (1.8-7.7); BASOPHIL # 0.1 TH/MM3 (0-0.2); EOSINOPHIL # 0.2 TH/MM3 (0-0.4); EOSINOPHIL % 2.2 % (0.0-4.0); HEMATOCRIT 43.3 % (39.0-51.0); HEMO FLAGS DIFF FINAL; LYMPHOCYTE # 1.8 TH/MM3 (1.0-4.8); MEAN CELL VOLUME 79.1 FL (80.0-100.0); MEAN CORPUSCULAR HEMOGLOBIN 26.5 PG (27.0-34.0); MEAN CORPUSCULAR HGB CONC 33.5 % (32.0-36.0); MONO % 7.3 % (0.0-8.0); NEUT % 64.5 % (16.0-70.0); PLATELET COUNT 331 TH/MM3 (150-450); RED BLOOD COUNT 5.48 MIL/MM3 (4.50-5.90); RED CELL DISTRIBUTION WIDTH 15.6 % (11.6-17.2); WHITE BLOOD COUNT 7.3 TH/MM3 (4.0-11.0)
[2017-08-22 15:08] LABS: APTT (PATIENT) 27.7 SEC (24.3-30.1); PROTHROMBIN TIME - PATIENT 10.3 SEC (9.8-11.6)
[2017-08-22 15:14] LABS: ALT (GPT) 43 U/L (12-78); ANION GAP 7 MEQ/L (5-15); AST (GOT) 23 U/L (15-37); BLOOD UREA NITROGEN 19 MG/DL (7-18); CHLORIDE 106 MEQ/L (98-107); GLOMERULAR FILTRATION RATE 77 ML/MIN (>89); POTASSIUM 3.8 MEQ/L (3.5-5.1); SODIUM (NA) 141 MEQ/L (136-145)
[2017-08-22 15:16] LABS: ALKALINE PHOSPHATASE 130 U/L (45-117); TOTAL BILIRUBIN ADULT 0.2 MG/DL (0.2-1.0)
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
[2017-08-22] MEDS ORDERED: IBUP1TAB7 PO (15:35)
[2017-08-22] MEDS ORDERED: TRAM50TA PO (15:35)
[2017-08-22] MEDS ORDERED: CIPR-9 PO (15:35)
[2017-08-22] MEDS ORDERED: CLIN150 PO (15:35)
--- NOTE | 2017-08-22 15:38 | RADRPT ---
EXAM DATE/TIME: 08/22/2017 15:06 [facility] COMPARISON: FOOT LEFT COMPLETE ([id number]), October 11, 2016, 20:38. INDICATIONS : Left foot pain MEDICAL HISTORY : None. SURGICAL HISTORY : None. ENCOUNTER: Initial ACUITY: 1 day PAIN SCORE: 8/10 LOCATION: Left foot FINDINGS: Three view examination of the left foot demonstrates no soft tissue swelling, dislocation, or fractur e. The tarsal bones appear intact. The interphalangeal and metatarsophalangeal joints are intact. The calcaneus is intact. Bony mineralization is normal. CONCLUSION: Stable exam compared to the prior study. Juanito Stacy MD on August 22, 2017 at 15:35 Board Certified Radiologist. This report was verified electronically.
[2017-08-27] MEDS ORDERED: HYDR-3583 PO (12:47)
== END 2017-08-22 16:06 | disposition home or self-care (01) ==
LOC: NEPD 13:53
DX: L03.116 Cellulitis of left lower limb (principal); F32.9 Major depressive disorder, single episode, unspecified; I10 Essential (primary) hypertension; J43.9 Emphysema, unspecified; G47.30 Sleep apnea, unspecified; E03.9 Hypothyroidism, unspecified; F17.210 Nicotine dependence, cigarettes, uncomplicated; Z79.82 Long term (current) use of aspirin; Z86.73 Personal history of transient ischemic attack (TIA), and cerebral infarction without residual deficits
CPT/HCPCS: 73630; 80053; 83605; 85025; 85610; 85730; 96365; 96375; 99284; E0113; J1885; J2270; J2405; J7030; L3260

== ENCOUNTER 2017-10-06 07:47 | Emergency (ER) | payer OTHER ==
[~2017-10-06] VITALS: Ht 182.9 cm; Wt 113.0 kg
[~2017-10-06 07:47] MED LIST changes: +ASPI81TA16 PO; +HYDR-3799 PO; -HYDR-3801 PO; +IBUP1TAB7 PO; -MELO15TA20; +MONT10TA2 PO; -MULT-65 PO; -RISP0.5T2 PO; -TURM500C3 PO
[2017-10-06 07:48] VITALS: BP 176/105; PULSE 81; RESP 18; TEMP 97.8; O2SAT 94
[2017-10-06] MEDS ORDERED: predniSONE 20 MG TAB PO ONE (08:45)
[2017-10-06] MEDS ORDERED: PRED-503 PO (08:45)
[2017-10-06] MEDS ORDERED: diphenhydrAMINE HCL 50 MG CAP PO ONE (08:45)
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
== END 2017-10-06 09:44 | disposition home or self-care (01) ==
LOC: NEPD 07:47
DX: L50.9 Urticaria, unspecified (principal); F17.210 Nicotine dependence, cigarettes, uncomplicated; I10 Essential (primary) hypertension; E03.9 Hypothyroidism, unspecified; F32.9 Major depressive disorder, single episode, unspecified; E78.00 Pure hypercholesterolemia, unspecified; Z86.73 Personal history of transient ischemic attack (TIA), and cerebral infarction without residual deficits; J43.9 Emphysema, unspecified; G47.30 Sleep apnea, unspecified
CPT/HCPCS: 99283; J7512; Q0163